=== PATIENT | female | born 1985 | race Caucasian/White ===

== ENCOUNTER → 2022-11-09 12:39 | Outpatient (CLI) | payer BC, SELFPAY ==
--- NOTE | ~2022-11-09 | MR_ITS ---
MRI of the right knee Clinical history: Pain Technique: Coronal proton density and proton density-weighted images, sagittal proton-density and T2 fat-sat images, and axial proton-density fat-saturated images were acquired. Findings: Anterior and posterior cruciate ligaments are intact. Medial collateral ligament and the la teral collateral ligament complex are intact. Popliteus tendon is intact. Medial and lateral menisci are intact, without evidence of tear. There is bone contusion at the lateral aspect of the lateral femoral condyle with focal impaction inj ury anteriorly. There is also prominent bone contusion at the medial pole of the patella. This contus ion pattern is compatible lateral patellar dislocation-relocation injury, with mild lateral subluxati on of the patella seen currently. There is full-thickness tearing of the medial patellar retinaculum, with tear probably extending to the origin of the MPFL. Articular cartilage is well preserved in the medial and lateral compartments, and along the femoral t rochlea. There is extensive high-grade chondromalacia of the lateral patellar facet. Questionable foc al chondral lesion of the medial patellar facet. Distal quadriceps tendon and patellar tendon are intact. Small to moderate joint effusion is present. There are several probable small intra-articular loose bodies, most likely chondroid in nature (for example coronal image 10 anteriorly, and posteromedially on coronal image 19). There is extensive sub cutaneous soft tissue edema anteriorly and at the anteromedial aspect of the knee. No Monaco's cyst. Impression: Constellation of findings consistent with recent lateral patellar dislocation-relocation injury. Ther e are prominent bone contusions at the lateral femoral condyle (with focal impaction injury) and at t he medial patellar pole. There is associated full-thickness tearing of the medial patellar retinaculu m extending to the origin of the MPFL, with lateral subluxation of the patella on the current exam. Aplib-sx-pqukssiv joint effusion with suspected small intra-articular loose bodies, possibly chondroi d in nature. Extensive chondromalacia patella, as detailed above. Reviewed, dictated and finalized at [facility] [employer] Impression: Constellation of findings consistent with recent lateral patellar dislocation-r elocation injury. There are prominent bone contusions at the lateral femoral co ndyle (with focal impaction injury) and at the medial patellar pole. There is a ssociated full-thickness tearing of the medial patellar retinaculum extending t o the origin of the MPFL, with lateral subluxation of the patella on the curren t exam. [id number]-ypapyapo joint effusion with suspected small intra-articular loose bod ies, possibly chondroid in nature. Extensive chondromalacia patella, as detailed above.
== END ==
PROVIDERS: PCP Orthopaedic Surgery; Visit Provider Family Medicine
DX: M25.561 Pain in right knee (principal); M25.461 Effusion, right knee; M22.41 Chondromalacia patellae, right knee; S80.01XA Contusion of right knee, initial encounter; S83.241A Other tear of medial meniscus, current injury, right knee, initial encounter; T14.90XA Injury, unspecified, initial encounter
CPT/HCPCS: 73721